=== PATIENT | male | born 1965 | race Two or more races ===

== ENCOUNTER 2016-11-10 12:55 | Emergency (ER) | payer OTHER ==
[~2016-11-10] VITALS: Ht 182.9 cm; Wt 113.4 kg
[2016-11-10] MEDS ORDERED: THIAMINE INJ 100 MG, MULTIPLE VITAMIN 10 ML, FOLIC ACID 1 MG, MAGNESIUM SULF SDV 50% 8 ... IV ONE ×5 (13:15)
[2016-11-10] MEDS ORDERED: LORazepam 2MG/ML-1ML VIAL IV ONE ×2 (13:15→15:45)
[2016-11-10 13:44] LABS: Basophils # (auto) 0.1 uL; Basophils % (auto) 0.7 % (0.0-2.0); Eosinophils # (auto) 0.1 uL; Eosinophils % (auto) 0.9 % (0.0-7.0); Hemoglobin 15.2 g/dL (13.5-17.5); Lymphocytes # (auto) 1.7 uL; Lymphocytes % (auto) 24.8 % (10.0-50.0); Mean Corpuscular Hemoglobin 32.4 pg (28.0-32.0); Mean Corpuscular Hgb Conc. 33.7 g/dL (32.0-36.0); Mean Platelet Volume 8.5 fL (7.4-10.4); Monocytes # (auto) 0.5 uL; Monocytes % (auto) 7.3 % (0.0-12.0); Neutrophils # (auto) 4.6 uL; Neutrophils % (auto) 66.3 % (37.0-80.0); Platelet Count (auto) 222 10^3/uL (140-450); Red Cell Distribution Width 12.6 % (11.6-16.0)
[2016-11-10] MEDS ORDERED: LISI-646 PO (13:46)
[2016-11-10] MEDS ORDERED: HCTZ25T PO (13:46)
[2016-11-10] MEDS ORDERED: ATE50T PO (13:46)
[2016-11-10 14:01] LABS: Albumin 3.6 g/dL (3.4-5.0); BUN/Creatinine Ratio 16.9; Bilirubin, Total 0.5 mg/dL (0.2-1.0); Calcium 8.6 mg/dL (8.5-10.1); Potassium 3.6 mmol/L (3.5-5.1)
[2016-11-10 16:53] VITALS: BP 161/88
== END 2016-11-10 17:07 | disposition home or self-care (01) ==
LOC: EDBD 12:55 → ER 13:01
DX: F10.239 Alcohol dependence with withdrawal, unspecified (principal); I10 Essential (primary) hypertension; F17.210 Nicotine dependence, cigarettes, uncomplicated; F12.10 Cannabis abuse, uncomplicated
CPT/HCPCS: 36415; 80053; 80320; 85025; 85049; 94761; 96365; 96366; 96375; 96376; 99285; J2060; J3411; J3475; J7030